=== PATIENT | female | born 2000 | race Caucasian/White ===

== ENCOUNTER 2024-01-19 22:02 | Emergency (ER) | payer SELFPAY ==
[2024-01-19 22:04] VITALS: BP 157/98
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
[2024-01-19 23:50] VITALS: BP 126/88
== END 2024-01-19 23:50 | disposition home or self-care (01) ==
LOC: EMR 22:02
PROVIDERS: EMERGENCY PHYSICIAN Student in an Organized Health Care Education/Training Program; FAMILY PHYSICIAN Family Medicine
DX: S00.93XA Contusion of unspecified part of head, initial encounter (principal); R22.0 Localized swelling, mass and lump, head; R00.2 Palpitations; V43.52XA Car driver injured in collision with other type car in traffic accident, initial encounter; Y92.89 Other specified places as the place of occurrence of the external cause; I47.10 Supraventricular tachycardia, unspecified; G43.909 Migraine, unspecified, not intractable, without status migrainosus
CPT/HCPCS: 99284; 70450; 93005

== ENCOUNTER → 2024-01-29 11:54 | Outpatient (REF) | payer OTHER, BC, SELFPAY | LOC: RAD 11:54 | PROVIDERS: ATTENDING PHYSICIAN Family Medicine | DX: R68.84 Jaw pain (principal); M79.604 Pain in right leg | CPT/HCPCS: 70330; 73590 ==